=== PATIENT | male | born 1970 | race Caucasian/White ===

== ENCOUNTER 2020-04-13 14:46 | Inpatient (IN) | payer OTHER ==
--- NOTE | 2020-04-13 15:06 | BHS.RME ---
Substance Use & Tx History - Substance Use History Heroin Substance amount: 15 bags Frequency of use: Daily Substance route: Inhalation (ex: sniffing or snorting) Date of Last Use: 04/12/20 (started age 26) Nicotine Substance amount: 1 pack Frequency of use: Daily Substance route: Smoking Date of Last Use: 04/13/20 (started age 25) Physical/Psych/Mental Status - Behavior General Behavior: Increased activity (restlessness, agitation) Eye Contact: Normal - Cooperativeness Cooperativeness: Cooperative - Thinking Thought Processes: Tight, Logical, Goal Directed - Physical Health Problems Is patient presently having any pain?: No Does patient presently have any injuries (include location): No Does patient currently have a fever: No Is patient : No COWS - Scale Resting Pulse: 1= AR 81-100 Sweatin= Chills/Flushing Restless Observation: 1= Difficult to Sit Still Pupil Size: 0= Normal to Room Light Bone or Joint Aches: 1= Mild Discomfort Runny Nose/ Eye Tearin= Runny Nose/Eyes GI Upset > 30mins: 1= Stomach Cramp Tremor Observation: 1= Tremor Custar, Not Seen Yawning Observation: 1= 1-2x During Session Anxiety or Irritability: 1=Feels Anxious/Irritable Goose Flesh Skin: 0=Smooth Skin COWS Score: 10
[2020-04-13 16:37] VITALS: BMI 38.1
--- NOTE | 2020-04-13 18:53 | HP ---
COWS - Scale Resting Pulse: 1= NM 81-100 Sweatin=Flushed/Facial Moisture Restless Observation: 1= Difficult to Sit Still Pupil Size: 0= Normal to Room Light Bone or Joint Aches: 2= Severe Diffuse Aches Runny Nose/ Eye Tearin= Runny Nose/Eyes GI Upset > 30mins: 2= Nausea/Diarrhea (nausea, no diarrhea) Tremor Observation: 2= Slight Tremor Visible Yawning Observation: 1= 1-2x During Session Anxiety or Irritability: 2=Irritable/Anxious Goose Flesh Skin: 0=Smooth Skin COWS Score: 15 CIWA Score - Admission Criteria [facility]AS Guidelines: Admission for Medically Managed Detox: Requires at least one of the followin. CIWA greater than 12 2. Seizures within the past 24 hours 3. Delirium tremens within the past 24 hours 4. Hallucinations within the past 24 hours 5. Acute intervention needed for co occurring medical disorder 6. Acute intervention needed for co occurring psychiatric disorder 7. Severe withdrawal that cannot be handled at a lower level of care (continued vomiting, continued diarrhea, abnormal vital signs) requiring intravenous medication and/or fluids 8. [facility] Chief Complaint: Seeking admission to detox from heroin Allergies/Adverse Reactions: Allergies Allergy/AdvReac Type Severity Reaction Status Date / Time No Known Allergies Allergy Verified 04/13/20 18:59 History of Present Illness: 49 years old male with a long history of heroin dependence is seeking admission to detox. His last admission to detox was at [facility] and this is his first admission to [facility]. He reports use 10- 15 bags daily. He reports medical history o0f hypertension, asthma, denies psych. history and suicidal ideation at this time. He denies blackouts and overdose. He is unemployed, lives alone and denies legal issues at this time. Exam Limitations: No Limitations - Ebola screening Have you traveled outside of the country in the last 21 days: No Have you had contact with anyone from an Ebola affected area: No Have you been sick,other than usual withdrawal symptoms: No - Review of Systems Constitutional: Chills, Malaise, Night Sweats, Changes in sleep EENT: reports: Nose Congestion Respiratory: reports: No Symptoms reported Cardiac: reports: No Symptoms Reported GI: reports: Constipated, Nausea, Poor Appetite, Poor Fluid Intake, Abdominal cramping : reports: No Symptoms Reported Musculoskeletal: reports: No Symptoms Reported Integumentary: reports: Dryness, Flushing Neuro: reports: Tremors Endocrine: reports: No Symptoms Reported Hematology: reports: No Symptoms Reported Psychiatric: reports: Mood/Affect Appropiate, Orientated x3 Other Systems: Reviewed and Negative Patient History - Patient Medical History Hx Anemia: No Hx Asthma: Yes (Albuterol) Hx Chronic Obstructive Pulmonary Disease (COPD): No Hx Cancer: No Hx Cardiac Disorders: No Hx Congestive Heart Failure: No Hx Hypertension: Yes Hx Hypercholesterolemia: No Hx Pacemaker: No HX Cerebrovascular Accident: No Hx Seizures: No Hx Diabetes: No Hx Gastrointestinal Disorders: No Hx Liver Disease: No Hx Genitourinary Disorders: No Hx Sexually Transmitted Disorders: No Hx Renal Disease (ESRD): No Hx Thyroid Disease: No Hx Human Immunodeficiency Virus (HIV): No (Negative 2019) Hx Hepatitis C: No Hx Depression: No Hx Suicide Attempt: No (Denies suicidal ideation at this time) Hx Bipolar Disorder: No Hx Schizophrenia: No - Patient Surgical History Past Surgical History: No - PPD History Previous Implant?: Yes Documented Results: Negative w/o proof Implanted On Prior [facility] Admission?: No PPD to be Administered?: Yes - Reproductive History Patient is a Female of Child Bearing Age (11 -55 yrs old): No (Male) - Smoking Cessation Smoking history: Current every day smoker Have you smoked in the past 12 months: Yes Aproximately how many cigarettes per day: 20 Hx Chewing Tobacco Use: No Initiated information on smoking cessation: Yes 'Breaking Loose' booklet given: 04/13/20 - Substance & Tx. History Hx Alcohol Use: No Hx Substance Use: Yes Substance Use Type: Heroin Hx Substance Use Treatment: Yes ([facility]) - Substances abused Heroin Frequency: Daily Amount used: 10- 15 bags Age of first use: 27 Date of last use: 04/12/20 Admission Physical Exam [facility] - Vital Signs Vital Signs: Vital Signs - 24 hr 04/13/20 16:36 Temperature 97.7 F Pulse Rate 84 Respiratory 18 Rate Blood Pressure 127/70 - Physical General Appearance: Yes: Moderate Distress, Tremorous, Sweating, Anxious HEENTM: Yes: Within Normal Limits Respiratory: Yes: Lungs Clear, Normal Breath Sounds, No Respiratory Distress Neck: Yes: Within Normal Limits Breast: Yes: Breast Exam Deferred Cardiology: Yes: Regular Rhythm, Regular Rate Abdominal: Yes: Normal Bowel Sounds, Protuberent Genitourinary: Yes: Within Normal Limits Back: Yes: Normal Inspection Musculoskeletal: Yes: Within Normal Limits, Other Extremities: Yes: Tremors Neurological: Yes: Within Normal Limits Integumentary: Yes: Within Normal Limits Lymphatic: Yes: Within Normal Limits - Diagnostic (1) Opioid dependence with withdrawal Current Visit: Yes Status: Acute (2) Nicotine dependence Current Visit: Yes Status: Chronic Qualifiers: Nicotine product type: cigarettes Substance use status: uncomplicated Qualified Code(s): F17.210 - Nicotine dependence, cigarettes, uncomplicated (3) Asthma Current Visit: Yes Status: Chronic Qualifiers: Asthma severity: mild Asthma persistence: intermittent (4) Hypertension Current Visit: Yes Status: Chronic Qualifiers: Hypertension type: essential hypertension Qualified Code(s): I10 - Essential (primary) hypertension Cleared for Admission [facility] Level of Care: Medically Managed Detox Regimen/Protocol: Methadone Claeared for Rehab Admission: No Breathalyzer - Breathalyzer Breathalyzer: 0 Urine Drug Screen - Test Device Lot number: [id number] Expiration date: 10/22/21 - Control Is test valid?: Yes - Results Drug screen NEGATIVE: No Urine drug screen results: MOP-Opiates Inpatient Rehab Admission - Rehab Decision to Admit Inpatient rehab admission?: No
[2020-04-13] MEDS ORDERED: cloNIDine HCL 0.1 MG TABLET PO PRN (19:10)
[2020-04-13] MEDS ORDERED: MAGNESIUM CITRATE 300 ML BOTTLE PO PRN (19:10)
[2020-04-13] MEDS ORDERED: MAGNESIUM HYDROX 2400MG/30ML ORAL SUSPENSION 30 ML CUP PO PRN (19:10)
[2020-04-13] MEDS ORDERED: ONDANSETRON *ODT* 4 MG TABLET SL PRN (19:10)
[2020-04-13] MEDS ORDERED: MENTHOL/PHENOL 1 EACH UD MM PRN (19:10)
[2020-04-13] MEDS ORDERED: MAG HYDROX/AL HYDROX/SIMETH 30 ML UNIT-DOSE CUP PO PRN (19:10)
[2020-04-13] MEDS ORDERED: ACETAMINOPHEN 325 MG TABLET (FP) PO PRN (19:10)
[2020-04-13] MEDS ORDERED: NICOTINE POLACRILEX 2 MG GUM BUC PRN (19:10)
[2020-04-13] MEDS ORDERED: METHADONE HCL 10 MG TABLET (FOR DETOX USE ONLY) PO ONE (19:30)
--- OUTSIDE RECORDS SUMMARY | 2020-04-13 21:04 | XMS ---
:1970 Author Organization [facility] Support Name Relationship Address Phone UE Unavailable Unavailable Unavailable EMA SKELTON SISTER [address] [phone] [place] [address] Re-disclosure Warning The records that you are about to access may contain information from federally- assisted alcohol or drug abuse programs. If such information is present, then the following federally mandated warning applies: This information has been disclosed to you from records protected by federal confidentiality rules (42 CFR part 2). The federal rules prohibit you from making any further disclosure of this information unless further disclosure is expressly permitted by the written consent of the person to whom it pertains or as otherwise permitted by 42 CFR part 2. A general authorization for the release of medical or other information is NOT sufficient for this purpose. The Federal rules restrict any use of the information to criminally investigate or prosecute any alcohol or drug abuse patient.The records that you are about to access may contain highly sensitive health information, the redisclosure of which is protected by Article 27-F of the [facility] Public Health law. If you continue you may haveaccess to information: Regarding HIV / AIDS; Provided by facilities licensed or operated by the [facility] Office of Mental Health; or Provided by the [facility] Office for People With Developmental Disabilities. If such information is present, then the following [facility] mandated warning applies: This information has been disclosed to you from confidential records which are protected by state law. State law prohibits you from making any further disclosure of this information without the specific written consent of the person to whom it pertains, or as otherwise permitted by law. Any unauthorized further disclosure in violation of state law may result in a fine or half-way sentence or both. A general authorization for the release of medical or other information is NOT sufficient authorization for further disclosure. Insurance Providers Payer name Policy type / Policy ID Covered Covered alliance party's Policy Plan Coverage type alliance party ID relationship to Ramirez Information ramirez VALUE [id number] OPTIONS-ME 1 DICAID
[2020-04-13] MEDS: MELATONIN 5 MG TABLETS PO SCH (21:41)
[2020-04-13] MEDS: THIAMINE HCL 100 MG TABLET (FP) PO SCH (23:16)
[2020-04-14] MEDS ORDERED: METHADONE HCL 5 MG TABLET (FOR DETOX USE ONLY) ONE (09:00)
[2020-04-14] MEDS ORDERED: METHADONE HCL 10 MG TABLET (FOR DETOX USE ONLY) ONE (09:00)
[2020-04-14] MEDS: METHOCARBAMOL 500 MG TABLET PO PRN ×2 (09:27→22:35)
[2020-04-14] MEDS: ACETAMINOPHEN 325 MG TABLET (FP) PO PRN (09:28)
[2020-04-14] MEDS: NICOTINE 21 MG/24 HOURS TOPICAL PATCH TD SCH ×2 (09:31→09:39)
[2020-04-14] MEDS: PRENATAL VITAMINS W/ FOLIC ACID TABLET (FP) PO SCH (09:31)
[2020-04-14] MEDS ORDERED: METHADONE (DETOX) 20 MG, METHADONE (DETOX) 5 MG PO ONE (10:00)
--- NOTE | 2020-04-14 10:14 | EKG ---
Test Reason : Blood Pressure : / mmHG Vent. Rate : 079 BPM Atrial Rate : 079 BPM P-R Int : 138 ms QRS Dur : 074 ms QT Int : 376 ms P-R-T Axes : 052 065 042 degrees QTc Int : 431 ms NORMAL SINUS RHYTHM NONSPECIFIC T WAVE ABNORMALITY ABNORMAL ECG NO PREVIOUS ECGS AVAILABLE Confirmed by MD Saulo, Bacilio ([id number]) on 04/14/2020 10:13:58 AM Referred By: Confirmed By:Bacilio Vernon MD
--- NOTE | 2020-04-14 10:49 | PN ---
S CIWA - CIWA Score Nausea/Vomitin-Mild Nausea/No Vomiting Muscle Tremors: 3 Anxiety: 3 Agitation: 3 Paroxysmal Sweats: No Perspiration Orientation: 0-Oriented Tacttile Disturbances: 1-Very Mild Itch/Numbness Auditory Disturbances: 0-None Visual Disturbances: 0-None Headache: 2-Mild CIWA-Ar Total Score: 13 S Progress Note (SOAP) Subjective: alert,irritable,anxious,interrupted sleep,tremor,aching pain body,back,tremor Objective: 04/14/20 16:53 Vital Signs Temperature 98.1 F 04/14/20 12:38 Pulse Rate 95 H 04/14/20 12:38 Respiratory Rate 18 04/14/20 12:38 Blood Pressure 158/90 04/14/20 12:38 O2 Sat by Pulse Oximetry (%) 97 04/14/20 12:38 Laboratory Last Values WBC 9.1 K/mm3 (4.0-10.0) 04/14/20 07:15 RBC 5.16 M/mm3 (4.00-5.60) 04/14/20 07:15 Hgb 14.9 GM/dL (11.7-16.9) 04/14/20 07:15 Hct 43.8 % (35.4-49) 04/14/20 07:15 MCV 85.0 fl (80-96) 04/14/20 07:15 MCH 28.9 pg (25.7-33.7) 04/14/20 07:15 MCHC 34.0 g/dl (32.0-35.9) 04/14/20 07:15 RDW 12.4 % (11.9-15.9) 04/14/20 07:15 Plt Count 185 K/MM3 (134-434) 04/14/20 07:15 MPV 9.8 fl (7.5-11.1) 04/14/20 07:15 Sodium 138 mmol/L (136-145) 04/14/20 07:00 Potassium 3.8 mmol/L (3.5-5.1) 04/14/20 07:00 Chloride 102 mmol/L (98-107) 04/14/20 07:00 Carbon Dioxide 27 mmol/L (21-32) 04/14/20 07:00 Anion Gap 9 MMOL/L (8-16) 04/14/20 07:00 BUN 11.3 mg/dL (7-18) 04/14/20 07:00 Creatinine 0.7 mg/dL (0.55-1.3) 04/14/20 07:00 Est GFR (CKD-EPI)AfAm 128.43 04/14/20 07:00 Est GFR (CKD-EPI)NonAf 110.81 04/14/20 07:00 Random Glucose 265 mg/dL (74-106) H 04/14/20 07:00 Calcium 9.1 mg/dL (8.5-10.1) 04/14/20 07:00 Total Bilirubin 2.2 mg/dL (0.2-1) H 04/14/20 07:00 AST 66 U/L (15-37) H 04/14/20 07:00 ALT 129 U/L (13-61) H 04/14/20 07:00 Alkaline Phosphatase 88 U/L (45-117) 04/14/20 07:00 Total Protein 7.2 g/dl (6.4-8.2) 04/14/20 07:00 Albumin 4.0 g/dl (3.4-5.0) 04/14/20 07:00 Syphilis Serology Non-reactive (NONREACTIVE) 04/13/20 07:00 Assessment: 04/14/20 16:54 withdrawal symptom, Plan: continue detox valium regimen,change diet to no salt,no concentrated sweet,hbA1c,repeat cmp,fasting glucose in am,bgm bidac,fluid,hydration
[2020-04-14 10:54] LABS: HEMATOCRIT 43.8 % (35.4-49); HEMOGLOBIN 14.9 GM/dL (11.7-16.9); MCH 28.9 pg (25.7-33.7); MEAN PLT VOLUME 9.8 fl (7.5-11.1); PLATELET COUNT 185 K/MM3 (134-434); RBC 5.16 M/mm3 (4.00-5.60); RDW 12.4 % (11.9-15.9); WHITE BLOOD COUNT 9.1 K/mm3 (4.0-10.0)
[2020-04-14 11:01] LABS: POTASSIUM 3.8 mmol/L (3.5-5.1)
[2020-04-14 11:18] LABS: BILIRUBIN,TOTAL 2.2 mg/dL (0.2-1); BLOOD UREA NITROGEN 11.3 mg/dL (7-18); CALCIUM 9.1 mg/dL (8.5-10.1); CREATININE 0.7 mg/dL (0.55-1.3); TOT PROT 7.2 g/dl (6.4-8.2)
[2020-04-14] MEDS: IBUPROFEN 400 MG TABLET (FP) PO PRN (13:31)
[2020-04-14] MEDS: BISMUTH SUBSALICYLATE 524 MG/30 ML UD PO PRN (13:32)
[2020-04-14] MEDS: diazePAM 5 MG TABLET PO PRN (18:29)
[2020-04-14] MEDS: THIAMINE HCL 100 MG TABLET (FP) PO SCH (22:34)
[2020-04-14] MEDS: MELATONIN 5 MG TABLETS PO SCH (22:34)
[2020-04-15] MEDS ORDERED: METHADONE HCL 10 MG TABLET (FOR DETOX USE ONLY) PO ONE (10:00)
[2020-04-15] MEDS: PRENATAL VITAMINS W/ FOLIC ACID TABLET (FP) PO SCH (10:26)
[2020-04-15] MEDS: NICOTINE 21 MG/24 HOURS TOPICAL PATCH TD SCH (10:26)
[2020-04-15 10:41] LABS: ALBUMIN 3.9 g/dl (3.4-5.0); BILIRUBIN,TOTAL 2.4 mg/dL (0.2-1); CALCIUM 9.5 mg/dL (8.5-10.1); CREATININE 0.8 mg/dL (0.55-1.3); POTASSIUM 4.2 mmol/L (3.5-5.1); TOT PROT 7.3 g/dl (6.4-8.2)
--- NOTE | 2020-04-15 12:54 | PN ---
S COWS - Scale Resting Pulse: 1= OR 81-100 Sweatin= No chills or Flushing Restless Observation: 0= Sits Still Pupil Size: 1= Pupils >than Normal Bone or Joint Aches: 2= Severe Diffuse Aches Runny Nose/ Eye Tearin= Runny Nose/Eyes GI Upset > 30mins: 2= Nausea/Diarrhea Tremor Observation of Outstretched Hands: 2= Slight Tremor Visible Yawning Observation: 1= 1-2x During Session Anxiety or Irritability: 2=Irritable/Anxious Goose Flesh Skin: 0=Smooth Skin COWS Score: 13 S Progress Note (SOAP) Subjective: alert,irritable,anxious,interrupted sleep,tremor,pain in the body and back Objective: 04/15/20 17:13 Vital Signs Temperature 97.7 F 04/15/20 12:45 Pulse Rate 85 04/15/20 12:45 Respiratory Rate 16 04/15/20 12:45 Blood Pressure 153/89 04/15/20 12:45 O2 Sat by Pulse Oximetry (%) 96 04/15/20 12:45 04/15/20 17:13 Laboratory Last Values WBC 9.1 K/mm3 (4.0-10.0) 04/14/20 07:15 RBC 5.16 M/mm3 (4.00-5.60) 04/14/20 07:15 Hgb 14.9 GM/dL (11.7-16.9) 04/14/20 07:15 Hct 43.8 % (35.4-49) 04/14/20 07:15 MCV 85.0 fl (80-96) 04/14/20 07:15 MCH 28.9 pg (25.7-33.7) 04/14/20 07:15 MCHC 34.0 g/dl (32.0-35.9) 04/14/20 07:15 RDW 12.4 % (11.9-15.9) 04/14/20 07:15 Plt Count 185 K/MM3 (134-434) 04/14/20 07:15 MPV 9.8 fl (7.5-11.1) 04/14/20 07:15 Sodium 137 mmol/L (136-145) 04/15/20 07:00 Potassium 4.2 mmol/L (3.5-5.1) 04/15/20 07:00 Chloride 103 mmol/L (98-107) 04/15/20 07:00 Carbon Dioxide 28 mmol/L (21-32) 04/15/20 07:00 Anion Gap 7 MMOL/L (8-16) L 04/15/20 07:00 BUN 15.0 mg/dL (7-18) 04/15/20 07:00 Creatinine 0.8 mg/dL (0.55-1.3) 04/15/20 07:00 Est GFR (CKD-EPI)AfAm 121.57 04/15/20 07:00 Est GFR (CKD-EPI)NonAf 104.89 04/15/20 07:00 POC Glucometer 365 UNITS (80-120) 04/15/20 16:31 Random Glucose 284 mg/dL (74-106) H 04/15/20 07:00 Hemoglobin A1c % 9.7 % (4.2-6.3) H 04/15/20 07:00 Calcium 9.5 mg/dL (8.5-10.1) 04/15/20 07:00 Total Bilirubin 2.4 mg/dL (0.2-1) H 04/15/20 07:00 AST 38 U/L (15-37) H 04/15/20 07:00 ALT 101 U/L (13-61) H 04/15/20 07:00 Alkaline Phosphatase 85 U/L (45-117) 04/15/20 07:00 Total Protein 7.3 g/dl (6.4-8.2) 04/15/20 07:00 Albumin 3.9 g/dl (3.4-5.0) 04/15/20 07:00 Syphilis Serology Non-reactive (NONREACTIVE) 04/13/20 07:00 COVID-19 ([place]) Not detected (Not Detected) 04/13/20 19:50 Assessment: 04/15/20 17:14 withdrawal symptom 04/15/20 17:15 Plan: continue detox methadone regimen,new onset of dm,diet change to no added salt,no concentrated sweet, start on metformin 500 mgs po bidac,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
--- NOTE | 2020-04-15 17:28 | PN ---
[facility] Progress Note Note: f/s 365. Pt states he has never known that he was a diabetic. A1c ~9. Pt states he was drinking juice all day. d/w to stop juice intake. Pt is on metformin. Pt states he will f/u with PCP re new DM. Pt is on metformin. Will have dietitian to talk to pt re new DM diagnosis diabetic diet
[2020-04-15] MEDS: metFORMIN HCL 500 MG TABLET (FP) PO SCH (17:48)
[2020-04-15] MEDS ORDERED: MASKS NR ONE (22:27)
[2020-04-15] MEDS: THIAMINE HCL 100 MG TABLET (FP) PO SCH (22:32)
[2020-04-15] MEDS: MELATONIN 5 MG TABLETS PO SCH (22:32)
[2020-04-15] MEDS: diazePAM 5 MG TABLET PO PRN (22:34)
[2020-04-16] MEDS: metFORMIN HCL 500 MG TABLET (FP) PO SCH ×2 (06:31→17:49)
[2020-04-16] MEDS ORDERED: METHADONE HCL 5 MG TABLET (FOR DETOX USE ONLY) ONE (09:49)
[2020-04-16] MEDS ORDERED: METHADONE HCL 10 MG TABLET (FOR DETOX USE ONLY) ONE (09:49)
[2020-04-16] MEDS ORDERED: METHADONE (DETOX) 10 MG, METHADONE (DETOX) 5 MG PO ONE (10:00)
[2020-04-16] MEDS: diazePAM 5 MG TABLET PO PRN ×2 (10:19→22:42)
[2020-04-16] MEDS: METHOCARBAMOL 500 MG TABLET PO PRN (10:19)
[2020-04-16] MEDS: PRENATAL VITAMINS W/ FOLIC ACID TABLET (FP) PO SCH (10:19)
[2020-04-16] MEDS: NICOTINE 21 MG/24 HOURS TOPICAL PATCH TD SCH (10:21)
[2020-04-16] MEDS: INSULIN (NOVOLOG) ASPART 100 UNITS/ML 10ML VIAL SQ SCH ×3 (12:16→21:40)
[2020-04-16] MEDS ORDERED: INSULIN SLIDING SCALE (NOVOLOG) 1 VIAL SQ ONE ×2 (17:09→21:19)
--- NOTE | 2020-04-16 17:21 | PN ---
[facility] COWS - Scale Resting Pulse: 1= RI 81-100 Sweatin= No chills or Flushing Restless Observation: 0= Sits Still Pupil Size: 1= Pupils >than Normal Bone or Joint Aches: 1= Mild Discomfort Runny Nose/ Eye Tearin= Runny Nose/Eyes GI Upset > 30mins: 1= Stomach Cramp Tremor Observation of Outstretched Hands: 2= Slight Tremor Visible Yawning Observation: 0= None Anxiety or Irritability: 2=Irritable/Anxious Goose Flesh Skin: 0=Smooth Skin COWS Score: 10 [facility] Progress Note (SOAP) Subjective: alert,irritable,anxious,interrupted sleep,pain in the boy and back Objective: 04/16/20 17:19 Vital Signs Temperature 97.3 F L 04/16/20 12:44 Pulse Rate 88 04/16/20 12:44 Respiratory Rate 18 04/16/20 12:44 Blood Pressure 146/96 04/16/20 12:44 O2 Sat by Pulse Oximetry (%) 98 04/16/20 12:44 04/16/20 17:19 bgm 344 Assessment: 04/16/20 17:20 withdrawal symptom Plan: continue detox methadone regimen,bgm achs with insulin sliding scale,fluid
[2020-04-16] MEDS: MELATONIN 5 MG TABLETS PO SCH (22:41)
[2020-04-16] MEDS: THIAMINE HCL 100 MG TABLET (FP) PO SCH (22:41)
[2020-04-17] MEDS: INSULIN (NOVOLOG) ASPART 100 UNITS/ML 10ML VIAL SQ SCH ×4 (07:17→21:49)
[2020-04-17] MEDS: metFORMIN HCL 500 MG TABLET (FP) PO SCH ×2 (07:17→18:01)
[2020-04-17] MEDS: ACETAMINOPHEN 325 MG TABLET (FP) PO PRN (08:31)
[2020-04-17] MEDS: PRENATAL VITAMINS W/ FOLIC ACID TABLET (FP) PO SCH (09:59)
[2020-04-17] MEDS ORDERED: METHADONE HCL 10 MG TABLET (FOR DETOX USE ONLY) PO ONE (10:00)
[2020-04-17] MEDS: NICOTINE 21 MG/24 HOURS TOPICAL PATCH TD SCH (10:00)
--- NOTE | 2020-04-17 12:39 | PN ---
[facility] COWS - Scale Resting Pulse: 1= [place] 81-100 Sweatin= No chills or Flushing Restless Observation: 0= Sits Still Pupil Size: 0= Normal to Room Light Bone or Joint Aches: 2= Severe Diffuse Aches Runny Nose/ Eye Tearin= None GI Upset > 30mins: 0= None Tremor Observation of Outstretched Hands: 0= None Yawning Observation: 0= None Anxiety or Irritability: 2=Irritable/Anxious Goose Flesh Skin: 0=Smooth Skin COWS Score: 5 BHS Progress Note (SOAP) Subjective: c/o mild withdrawal symptoms. Objective: 04/17/20 12:36 Vital Signs 04/17/20 04/17/20 05:48 08:30 Temperature 97.1 F L 97.1 F L Pulse Rate 75 87 Respiratory 18 18 Rate Blood Pressure 145/84 164/100 O2 Sat by Pulse 95 Oximetry (%) Laboratory Last Values WBC 9.1 K/mm3 (4.0-10.0) 04/14/20 07:15 RBC 5.16 M/mm3 (4.00-5.60) 04/14/20 07:15 Hgb 14.9 GM/dL (11.7-16.9) 04/14/20 07:15 Hct 43.8 % (35.4-49) 04/14/20 07:15 MCV 85.0 fl (80-96) 04/14/20 07:15 MCH 28.9 pg (25.7-33.7) 04/14/20 07:15 MCHC 34.0 g/dl (32.0-35.9) 04/14/20 07:15 RDW 12.4 % (11.9-15.9) 04/14/20 07:15 Plt Count 185 K/MM3 (134-434) 04/14/20 07:15 MPV 9.8 fl (7.5-11.1) 04/14/20 07:15 Sodium 137 mmol/L (136-145) 04/15/20 07:00 Potassium 4.2 mmol/L (3.5-5.1) 04/15/20 07:00 Chloride 103 mmol/L (98-107) 04/15/20 07:00 Carbon Dioxide 28 mmol/L (21-32) 04/15/20 07:00 Anion Gap 7 MMOL/L (8-16) L 04/15/20 07:00 BUN 15.0 mg/dL (7-18) 04/15/20 07:00 Creatinine 0.8 mg/dL (0.55-1.3) 04/15/20 07:00 Est GFR (CKD-EPI)AfAm 121.57 04/15/20 07:00 Est GFR (CKD-EPI)NonAf 104.89 04/15/20 07:00 POC Glucometer 270 UNITS (80-120) 04/17/20 11:48 Random Glucose 284 mg/dL (74-106) H 04/15/20 07:00 Hemoglobin A1c % 9.7 % (4.2-6.3) H 04/15/20 07:00 Calcium 9.5 mg/dL (8.5-10.1) 04/15/20 07:00 Total Bilirubin 2.4 mg/dL (0.2-1) H 04/15/20 07:00 AST 38 U/L (15-37) H 04/15/20 07:00 ALT 101 U/L (13-61) H 04/15/20 07:00 Alkaline Phosphatase 85 U/L (45-117) 04/15/20 07:00 Total Protein 7.3 g/dl (6.4-8.2) 04/15/20 07:00 Albumin 3.9 g/dl (3.4-5.0) 04/15/20 07:00 Syphilis Serology Non-reactive (NONREACTIVE) 04/13/20 07:00 COVID-19 ([place]) Not detected (Not Detected) 04/13/20 19:50 Labs noted. Assessment: 04/17/20 12:36 AOX3, in no acute respiratory distress. Full ROM, ambulating in the unit. Mild Withdrawal symptoms. For discharge tomorrow. Plan: continue detox. D/C in AM.
[2020-04-17] MEDS ORDERED: ALBUTEROL SO4 HFA INHALER IH PRN (14:24)
[2020-04-17] MEDS ORDERED: INSULIN SLIDING SCALE (NOVOLOG) 1 VIAL SQ ONE ×2 (17:21→22:38)
[2020-04-17] MEDS: METHOCARBAMOL 500 MG TABLET PO PRN (22:23)
[2020-04-17] MEDS: THIAMINE HCL 100 MG TABLET (FP) PO SCH (22:23)
[2020-04-17] MEDS: MELATONIN 5 MG TABLETS PO SCH (22:23)
[2020-04-18] MEDS ORDERED: METHADONE HCL 5 MG TABLET (FOR DETOX USE ONLY) PO ONE (06:00)
[2020-04-18 06:22] VITALS: BP 134/71; PULSE 77; TEMP 98.6
[2020-04-18] MEDS: metFORMIN HCL 500 MG TABLET (FP) PO SCH (06:38)
[2020-04-18] MEDS: INSULIN (NOVOLOG) ASPART 100 UNITS/ML 10ML VIAL SQ SCH (06:38)
[2020-04-18] MEDS: IBUPROFEN 400 MG TABLET (FP) PO PRN (08:47)
[2020-04-18] MEDS: BISMUTH SUBSALICYLATE 524 MG/30 ML UD PO PRN (08:51)
[2020-04-18] MEDS ORDERED: amLODIPine BESYLATE 10 MG TABLET (FP) PO SCH (10:00)
--- NOTE | 2020-04-18 12:56 | DS ---
[facility] Detox Discharge Summary Admission Date: 04/13/20 Discharge Date: 04/18/20 - History Present History: Opioid Dependence Additional Comments: Pt is medically cleared and discharged today. Pt completed the detox protocol. Pt is encouraged to follow-up with an outpatient CD program and also to follow- up with his pmd which he verbalized understanding. Pt is AOX3, in no acute respiratory distress, Full ROM, and ambulatory. Pertinent Past History: h/o Asthma, HTN, and heroin use disorder. - Physical Exam Results Vital Signs: Vital Signs Temperature 98.6 F 04/18/20 06:22 Pulse Rate 77 04/18/20 06:22 Respiratory Rate 18 04/18/20 06:22 Blood Pressure 134/71 04/18/20 06:22 O2 Sat by Pulse Oximetry (%) 99 04/18/20 06:22 Vital Signs 04/18/20 06:22 Temperature 98.6 F Pulse Rate 77 Respiratory 18 Rate Blood Pressure 134/71 O2 Sat by Pulse 99 Oximetry (%) Laboratory Last Values WBC 9.1 K/mm3 (4.0-10.0) 04/14/20 07:15 RBC 5.16 M/mm3 (4.00-5.60) 04/14/20 07:15 Hgb 14.9 GM/dL (11.7-16.9) 04/14/20 07:15 Hct 43.8 % (35.4-49) 04/14/20 07:15 MCV 85.0 fl (80-96) 04/14/20 07:15 MCH 28.9 pg (25.7-33.7) 04/14/20 07:15 MCHC 34.0 g/dl (32.0-35.9) 04/14/20 07:15 RDW 12.4 % (11.9-15.9) 04/14/20 07:15 Plt Count 185 K/MM3 (134-434) 04/14/20 07:15 MPV 9.8 fl (7.5-11.1) 04/14/20 07:15 Sodium 137 mmol/L (136-145) 04/15/20 07:00 Potassium 4.2 mmol/L (3.5-5.1) 04/15/20 07:00 Chloride 103 mmol/L (98-107) 04/15/20 07:00 Carbon Dioxide 28 mmol/L (21-32) 04/15/20 07:00 Anion Gap 7 MMOL/L (8-16) L 04/15/20 07:00 BUN 15.0 mg/dL (7-18) 04/15/20 07:00 Creatinine 0.8 mg/dL (0.55-1.3) 04/15/20 07:00 Est GFR (CKD-EPI)AfAm 121.57 04/15/20 07:00 Est GFR (CKD-EPI)NonAf 104.89 04/15/20 07:00 POC Glucometer 230 UNITS (80-120) 04/18/20 05:52 Random Glucose 284 mg/dL (74-106) H 04/15/20 07:00 Hemoglobin A1c % 9.7 % (4.2-6.3) H 04/15/20 07:00 Calcium 9.5 mg/dL (8.5-10.1) 04/15/20 07:00 Total Bilirubin 2.4 mg/dL (0.2-1) H 04/15/20 07:00 AST 38 U/L (15-37) H 04/15/20 07:00 ALT 101 U/L (13-61) H 04/15/20 07:00 Alkaline Phosphatase 85 U/L (45-117) 04/15/20 07:00 Total Protein 7.3 g/dl (6.4-8.2) 04/15/20 07:00 Albumin 3.9 g/dl (3.4-5.0) 04/15/20 07:00 Syphilis Serology Non-reactive (NONREACTIVE) 04/13/20 07:00 COVID-19 ([place]) Not detected (Not Detected) 04/13/20 19:50 Labs noted. Pertinent Admission Physical Exam Findings: withdrawal symptoms. - Treatment Hospital Course: Detox Protocol Followed, Detoxed Safely, Responded well, Discharged Condition Good - Medication Discharge Medications: Ambulatory Orders Enalapril Maleate [Vasotec -] 10 mg PO DAILY 04/13/20 Albuterol Sulfate Inhaler - [Ventolin Hfa Inhaler -] 2 inh PO Q6H 30 Days #1 inhaler 04/17/20 Amlodipine Besylate [Norvasc -] 10 mg PO DAILY 14 Days #14 tablet 04/17/20 Metformin HCl [Glucophage] 500 mg PO BID 14 Days #28 tablet 04/17/20 - Diagnosis (1) Opioid dependence with withdrawal Status: Acute (2) Asthma Status: Chronic Qualifiers: Asthma severity: mild Asthma persistence: intermittent (3) Hypertension Status: Chronic Qualifiers: Hypertension type: essential hypertension Qualified Code(s): I10 - Essential (primary) hypertension (4) Nicotine dependence Status: Chronic Qualifiers: Nicotine product type: cigarettes Substance use status: uncomplicated Qualified Code(s): F17.210 - Nicotine dependence, cigarettes, uncomplicated (5) Opioid use disorder Status: Chronic - AMA Did Patient Leave Against Medical Advice: No
== END 2020-04-18 09:10 | disposition home or self-care (01) | DRG 773 ==
LOC: YASAS 14:46 → Y3N 18:55
PROVIDERS: ADMIT Allergy & Immunology; ATTEND Allergy & Immunology
PROC: HZ2ZZZZ Detoxification Services for Substance Abuse Treatment (ICD-10-PCS; principal; 2020-04-13)
DX: F11.23 Opioid dependence with withdrawal (principal); F17.210 Nicotine dependence, cigarettes, uncomplicated; I10 Essential (primary) hypertension; J45.20 Mild intermittent asthma, uncomplicated; E11.9 Type 2 diabetes mellitus without complications; Z79.84 Long term (current) use of oral hypoglycemic drugs
CPT/HCPCS: 36415; 80053; 82962; 83036; 85027; 86780; 93005; 93010; J0735; U0003

== ENCOUNTER 2020-06-03 13:29 | Inpatient (IN) | payer OTHER ==
[2020-06-03 15:48] VITALS: BMI 36.5
[2020-06-03] MEDS ORDERED: MAGNESIUM CITRATE 300 ML BOTTLE PO PRN (17:09)
[2020-06-03] MEDS ORDERED: cloNIDine HCL 0.1 MG TABLET PO PRN (17:09)
[2020-06-03] MEDS ORDERED: IBUPROFEN 400 MG TABLET (FP) PO PRN (17:09)
[2020-06-03] MEDS ORDERED: MAGNESIUM HYDROX 2400MG/30ML ORAL SUSPENSION 30 ML CUP PO PRN (17:09)
[2020-06-03] MEDS ORDERED: METHADONE HCL 10 MG TABLET (FOR DETOX USE ONLY) PO ONE (17:09)
[2020-06-03] MEDS ORDERED: NICOTINE POLACRILEX 2 MG GUM BUC PRN (17:09)
[2020-06-03] MEDS ORDERED: MENTHOL/PHENOL 1 EACH UD MM PRN (17:09)
[2020-06-03] MEDS ORDERED: METHOCARBAMOL 500 MG TABLET PO PRN (17:09)
[2020-06-03] MEDS ORDERED: MAG HYDROX/AL HYDROX/SIMETH 30 ML UNIT-DOSE CUP PO PRN (17:09)
[2020-06-03] MEDS ORDERED: BISMUTH SUBSALICYLATE 524 MG/30 ML UD PO PRN (17:09)
[2020-06-03] MEDS ORDERED: ONDANSETRON *ODT* 4 MG TABLET SL PRN (17:09)
[2020-06-03] MEDS ORDERED: ACETAMINOPHEN 325 MG TABLET (FP) PO PRN ×2 (17:09)
[2020-06-03] MEDS: NICOTINE 21 MG/24 HOURS TOPICAL PATCH TD SCH (19:11)
[2020-06-03] MEDS: hydrOXYzine PAMOATE 25 MG CAPSULE (FP) PO SCH ×2 (19:13→22:18)
[2020-06-03] MEDS: ENALAPRIL MALEATE 10 MG TABLET PO SCH (19:13)
[2020-06-03] MEDS: amLODIPine BESYLATE 10 MG TABLET (FP) PO SCH (19:14)
[2020-06-03] MEDS ORDERED: INSULIN (NOVOLOG) ASPART 100 UNITS/ML 10ML VIAL SQ ONE (22:00)
[2020-06-03] MEDS: MELATONIN 5 MG TABLETS PO SCH (22:18)
[2020-06-03] MEDS: THIAMINE HCL 100 MG TABLET (FP) PO SCH (22:18)
[2020-06-04] MEDS ORDERED: INSULIN SLIDING SCALE (NOVOLOG) 1 VIAL SQ ONE (02:30)
[2020-06-04] MEDS: hydrOXYzine PAMOATE 25 MG CAPSULE (FP) PO SCH ×5 (06:05→21:56)
[2020-06-04] MEDS: metFORMIN HCL 500 MG TABLET (FP) PO SCH ×2 (06:05→17:08)
[2020-06-04] MEDS ORDERED: METHADONE HCL 10 MG TABLET (FOR DETOX USE ONLY) ONE (08:33)
[2020-06-04] MEDS ORDERED: METHADONE HCL 5 MG TABLET (FOR DETOX USE ONLY) ONE (08:34)
[2020-06-04] MEDS: PRENATAL VITAMINS W/ FOLIC ACID TABLET (FP) PO SCH (09:38)
[2020-06-04] MEDS: amLODIPine BESYLATE 10 MG TABLET (FP) PO SCH (09:38)
[2020-06-04] MEDS: NICOTINE 21 MG/24 HOURS TOPICAL PATCH TD SCH (09:38)
[2020-06-04] MEDS: ENALAPRIL MALEATE 10 MG TABLET PO SCH (09:38)
[2020-06-04] MEDS ORDERED: METHADONE (DETOX) 20 MG, METHADONE (DETOX) 5 MG PO ONE (10:00)
[2020-06-04 10:11] LABS: POTASSIUM 4.4 mmol/L (3.5-5.1)
[2020-06-04 10:12] LABS: HEMATOCRIT 39.6 % (35.4-49); HEMOGLOBIN 13.3 GM/dL (11.7-16.9); MCH 29.3 pg (25.7-33.7); MCHC 33.7 g/dl (32.0-35.9); MEAN CELL VOLUME 87.1 fl (80-96); MEAN PLT VOLUME 10.5 fl (7.5-11.1); PLATELET COUNT 195 K/MM3 (134-434); RBC 4.55 M/mm3 (4.00-5.60); RDW 12.6 % (11.9-15.9); WHITE BLOOD COUNT 7.6 K/mm3 (4.0-10.0)
[2020-06-04 10:16] LABS: CALCIUM 9.4 mg/dL (8.5-10.1)
[2020-06-04 10:18] LABS: ALBUMIN 3.8 g/dl (3.4-5.0); BLOOD UREA NITROGEN 15.5 mg/dL (7-18)
[2020-06-04 10:21] LABS: CREATININE 0.9 mg/dL (0.55-1.3); TOT PROT 6.7 g/dl (6.4-8.2)
[2020-06-04] MEDS ORDERED: cloNIDine HCL 0.1 MG TABLET PO PRN (10:35)
[2020-06-04] MEDS ORDERED: INSULIN (NOVOLOG) ASPART 100 UNITS/ML 10ML VIAL SQ ONE (10:50)
[2020-06-04] MEDS: INSULIN SLIDING SCALE (NOVOLOG) 1 VIAL SQ SCH (17:08)
[2020-06-04] MEDS: THIAMINE HCL 100 MG TABLET (FP) PO SCH (21:56)
[2020-06-04] MEDS: MELATONIN 5 MG TABLETS PO SCH (21:56)
[2020-06-05] MEDS: hydrOXYzine PAMOATE 25 MG CAPSULE (FP) PO SCH ×5 (05:57→22:22)
[2020-06-05] MEDS: INSULIN SLIDING SCALE (NOVOLOG) 1 VIAL SQ SCH ×2 (06:04→17:20)
[2020-06-05] MEDS: metFORMIN HCL 500 MG TABLET (FP) PO SCH ×2 (06:04→17:19)
[2020-06-05] MEDS ORDERED: METHADONE HCL 10 MG TABLET (FOR DETOX USE ONLY) PO ONE (10:00)
[2020-06-05] MEDS: amLODIPine BESYLATE 10 MG TABLET (FP) PO SCH (10:20)
[2020-06-05] MEDS: PRENATAL VITAMINS W/ FOLIC ACID TABLET (FP) PO SCH (10:20)
[2020-06-05] MEDS: NICOTINE 21 MG/24 HOURS TOPICAL PATCH TD SCH (10:20)
[2020-06-05] MEDS: ENALAPRIL MALEATE 10 MG TABLET PO SCH (10:21)
[2020-06-05] MEDS: THIAMINE HCL 100 MG TABLET (FP) PO SCH (22:22)
[2020-06-05] MEDS: MELATONIN 5 MG TABLETS PO SCH (22:22)
[2020-06-06] MEDS: hydrOXYzine PAMOATE 25 MG CAPSULE (FP) PO SCH ×5 (07:14→22:41)
[2020-06-06] MEDS: metFORMIN HCL 500 MG TABLET (FP) PO SCH ×2 (07:15→17:50)
[2020-06-06] MEDS: INSULIN SLIDING SCALE (NOVOLOG) 1 VIAL SQ SCH ×2 (07:15→17:51)
[2020-06-06] MEDS ORDERED: METHADONE HCL 10 MG TABLET (FOR DETOX USE ONLY) ONE (09:33)
[2020-06-06] MEDS ORDERED: METHADONE HCL 5 MG TABLET (FOR DETOX USE ONLY) ONE (09:33)
[2020-06-06] MEDS ORDERED: METHADONE (DETOX) 10 MG, METHADONE (DETOX) 5 MG PO ONE (10:00)
[2020-06-06] MEDS: ENALAPRIL MALEATE 10 MG TABLET PO SCH (10:25)
[2020-06-06] MEDS: PRENATAL VITAMINS W/ FOLIC ACID TABLET (FP) PO SCH (10:25)
[2020-06-06] MEDS: amLODIPine BESYLATE 10 MG TABLET (FP) PO SCH (10:25)
[2020-06-06] MEDS: NICOTINE 21 MG/24 HOURS TOPICAL PATCH TD SCH (10:25)
[2020-06-06] MEDS: THIAMINE HCL 100 MG TABLET (FP) PO SCH (22:41)
[2020-06-06] MEDS: MELATONIN 5 MG TABLETS PO SCH (22:41)
[2020-06-07] MEDS: hydrOXYzine PAMOATE 25 MG CAPSULE (FP) PO SCH ×5 (07:14→22:06)
[2020-06-07] MEDS: metFORMIN HCL 500 MG TABLET (FP) PO SCH ×2 (07:14→17:14)
[2020-06-07] MEDS: INSULIN SLIDING SCALE (NOVOLOG) 1 VIAL SQ SCH ×2 (07:15→16:58)
[2020-06-07] MEDS ORDERED: METHADONE HCL 10 MG TABLET (FOR DETOX USE ONLY) PO ONE (10:00)
[2020-06-07] MEDS: PRENATAL VITAMINS W/ FOLIC ACID TABLET (FP) PO SCH (10:54)
[2020-06-07] MEDS: NICOTINE 21 MG/24 HOURS TOPICAL PATCH TD SCH (10:54)
[2020-06-07] MEDS: amLODIPine BESYLATE 10 MG TABLET (FP) PO SCH (10:54)
[2020-06-07] MEDS: ENALAPRIL MALEATE 10 MG TABLET PO SCH (10:54)
[2020-06-07] MEDS: THIAMINE HCL 100 MG TABLET (FP) PO SCH (22:07)
[2020-06-07] MEDS: MELATONIN 5 MG TABLETS PO SCH (22:07)
[2020-06-08] MEDS: hydrOXYzine PAMOATE 25 MG CAPSULE (FP) PO SCH (05:23)
[2020-06-08] MEDS ORDERED: METHADONE HCL 5 MG TABLET (FOR DETOX USE ONLY) PO ONE (06:00)
[2020-06-08] MEDS: metFORMIN HCL 500 MG TABLET (FP) PO SCH (06:16)
[2020-06-08] MEDS: INSULIN SLIDING SCALE (NOVOLOG) 1 VIAL SQ SCH (07:45)
[2020-06-08] MEDS ORDERED: INSULIN SLIDING SCALE (NOVOLOG) 1 VIAL SQ ONE (07:57)
[2020-06-08 09:31] VITALS: BP 141/82; PULSE 104; TEMP 97.1
== END 2020-06-08 09:12 | disposition home or self-care (01) | DRG 773 ==
LOC: YASAS 13:29 → Y3N 16:30
PROVIDERS: ADMIT Allergy & Immunology; ATTEND Allergy & Immunology
PROC: HZ2ZZZZ Detoxification Services for Substance Abuse Treatment (ICD-10-PCS; principal; 2020-06-03)
DX: F11.23 Opioid dependence with withdrawal (principal); F17.210 Nicotine dependence, cigarettes, uncomplicated; F19.24 Other psychoactive substance dependence with psychoactive substance-induced mood disorder; I10 Essential (primary) hypertension; J45.20 Mild intermittent asthma, uncomplicated; E11.9 Type 2 diabetes mellitus without complications; Z79.4 Long term (current) use of insulin
CPT/HCPCS: 36415; 80053; 82962; 85027; 86780; C9803; J0735; U0003